=== PATIENT | male | born 1980 | race Caucasian/White ===

== ENCOUNTER 2025-01-16 18:44 | Emergency (ER) | payer MEDICAID ==
[~2025-01-16] VITALS: Ht 175.3 cm; Wt 72.7 kg
[2025-01-16 19:29] VITALS: BP 134/82; PULSE 89; RESP 16; TEMP 98.6; O2SAT 99
== END 2025-01-16 19:32 | disposition home or self-care (01) ==
LOC: ER 18:46
DX: F15.10 Other stimulant abuse, uncomplicated (principal); F11.10 Opioid abuse, uncomplicated
CPT/HCPCS: 99284